=== PATIENT | female | born 1970 | race Caucasian/White ===

== ENCOUNTER → 2019-02-08 10:43 | Outpatient (CLI) | payer MEDICARE, MEDICAID, SELFPAY ==
--- NOTE | 2019-02-08 10:49 | VDUE_ITS ---
Reason For Study: ESRD Right Arm Left Arm Right Cephalic Vein at the wrist measures Left Cephalic Vein at the wrist measures 0.13 x 0.13 cm. 0.18 x 0.19 cm. Right Cephalic Vein in the forearm measures Left Cephalic Vein in the forearm measures 0.17 x 0.20 cm. 0.28 x 0.31 cm. Right Cephalic Vein below antecub measures Left Cephalic Vein below antecub measures 0.09 x 0.12 cm. 0.30 x 0.28 cm. Right Cephalic Vein above antecub measures Left Cephalic Vein above antecub measures 0.15 x 0.15 cm. 0.33x x0.37 cm. Right Cephalic Vein mid bicep measures 0.19 Left Cephalic Vein at mid bicep measures x 0.20 cm. 0.29 x 0.30 cm. Right Cephalic Vein at the shoulder measures Left Cephalic Vein at the shoulder measures 0.35 x 0.40 cm. 0.34 x 0.35 cm. Right Basilic Vein at the origin measures Basilic vein at origin measures 0.29 x 0.34 0.43 x 0.47 cm. cm. Right Basilic Vein mid bicep measures 0.39 x Basilic vein at bicep measures 0.27 x 0.29 0.47 cm. cm. Right Basilic Vein above antecub measures Basilic vein above antecub measures 0.29 x 0.47 x 0.49 cm. 0.30 cm. Rt Brachial artery measures 0.47 x 0.48 cm Lt Brachial artery measures 0.42 x 0.41 cm with a velocity of 115.4 cm/sec. with a velocity of 108.9 cm/sec. Rt Radial artery measures 0.23 x 0.23 cm Lt Radial artery measures 0.10 x 0.11 cm with a velocity of 108.9 cm/sec. with a velocity of 49.4 cm/sec. Interpretation Summary Diminutive right upper extremity cephalic vein Small left cephalic vein at the wrist but otherwise adequate Adequate and compressible bilateral upper arm basilic veins Abnormal bilateral radial arteries--very small on the left Normal bilateral brachial arteries. Ordering Physician: Mark Becerra Referring Physician: Natalee Bhakta Performed By: Carolyn Danielson RVT ?
== END ==
PROVIDERS: Family Provider Family Medicine; PCP Family Medicine; Referring Provider Internal Medicine Nephrology; Visit Provider Internal Medicine Nephrology
DX: Z01.818 Encounter for other preprocedural examination (principal); N18.6 End stage renal disease
CPT/HCPCS: 93970; 93971; G0365

== ENCOUNTER → 2019-02-15 08:49 | Outpatient (CLI) | payer MEDICARE, MEDICAID, SELFPAY ==
[2019-02-15 08:15] VITALS: BMI 18.1
--- NOTE | 2019-02-15 08:51 | RAD_ITS ---
STUDY: X-RAY CHEST REASON FOR EXAM: Female, 48 years old. Pre-op. TECHNIQUE: PA and lateral views of the chest. COMPARISON: None. FINDINGS: The lungs are hyperinflated. There is no focal consolidation. There is a central venous catheter in place terminating within the expected region of the superior vena cava. There is blunting of the left costophrenic angle. Normal size heart. Normal mediastinum and chika. Normal visualized pulmonary arteries. Normal visualized aortic arch and descending thoracic aorta. There are diffuse degenerative changes of the visualized thoracic spine. Normal visualized ribs, clavicles, and shoulders. There is no demonstrated abnormality of the visualized soft tissue structures of the upper abdomen. RAD/Chest PA and Lateral IMPRESSION: Hyperinflated lungs may reflect underlying COPD. Mild blunting of the left costophrenic angle, this may be secondary to pleural thickening and/or a small effusion. Electronically Signed: Jyoti Low MD at 16:49 EDT Tel , Service support ,
== END ==
PROVIDERS: Family Provider Family Medicine; PCP Family Medicine; Referring Provider Surgery; Visit Provider Surgery
DX: R05 Cough (principal)
CPT/HCPCS: 71046

== ENCOUNTER 2019-03-15 10:09 | Day surgery (SDC) | payer MEDICARE, MEDICAID, SELFPAY ==
[2019-02-15 08:15] VITALS: BMI 18.1
--- NOTE | 2019-02-15 10:05 | HP_ITS ---
Intake Vital Signs 02/15/19 Height 5 ft 10 in 02/15/19 Weight: 126 lb 02/15/19 Body Mass Index (BMI) 18.1 02/15/19 Blood Pressure 177/9 H 02/15/19 Blood Pressure Location Rt brachial 02/15/19 Blood Pressure Position Sitting 02/15/19 Respiratory Rate 18 02/15/19 Pulse Rate 73 02/15/19 Pulse Source Monitor 02/15/19 Temperature 98.4 F 02/15/19 Temperature Source Oral 02/15/19 Pulse Ox 99 02/15/19 Oxygen Delivery Method room air Intake Visit Reasons: RENAL FAILURE/FISTULA, MAPPING DONE/[facility] 02/08/19 Communications Officer Required: No Is patient in pain?: No Allergies acetaminophen [From Vicodin] Allergy (Intermediate, Verified 02/15/19 08:16) itching hydrocodone [From Vicodin] Allergy (Intermediate, Verified 02/15/19 08:16) itching Medications calcium acetate 667 mg capsule 1,334 mg PO TID cap 02/15/19 [History Confirmed 02/15/19] carvedilol 25 mg tablet 25 mg PO BID tab 02/15/19 [History Confirmed 02/15/19] furosemide 80 mg tablet 80 mg PO BID tab 02/15/19 [History Confirmed 02/15/19] hydralazine 10 mg tablet 10 mg PO TID 02/15/19 [History Confirmed 02/15/19] nifedipine ER 60 mg tablet,extended release 60 mg PO BID tab 02/15/19 [History Confirmed 02/15/19] sodium bicarbonate 650 mg tablet 650 mg PO 4-6XD PRN 02/15/19 [History Confirmed 02/15/19] [facility] Medical History Chronic renal failure, stage 5 (Chronic) Chronic renal failure (Chronic) Hypertension (Chronic) Surgical History history peritoneal dialysis catheter (Acute) history right chest dialysis catheter (Acute) history right kidney transplant (Acute) Social History Smoking Status: Former smoker alcohol intake: never substance use type: does not use HPI HPI HPI: PARKER STAFFORD, is a 48 F who presents to the office today for HPI HPI Surgical H&P: Yes HPI: PARKER STAFFORD, is a 48 F who presents to the office today for surgical consultation regarding arteriovenous hemodialysis fistula creation. The patient is kindly referred by Dr. Mark Becerra and a written copy of my surgical consult recommendations will return to him. 48-year-old female. She got a living related renal transplant 2010 from her sister. The patient states that the cause of her renal demise in her estimation still indeterminate per possibly secondary to hypertension. 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 She states October 2018 she had right internal jugular tunneled dialysis catheters placed and she is been on hemodialysis ever since. She notes that previously she has had right internal jugular tunneled dialysis catheters in 2010. She also previously has had an attempt at peritoneal dialysis catheters and those did not function. She is right arm dominant. At the [facility] on February 08, 2019 she had bilateral upper extremity vein mapping. The right upper extremity cephalic vein throughout the forearm and upper arm very diminutive. The right upper arm basilic vein was adequate. The left forearm cephalic vein immediately wrist very small however by the mid forearm and then more approximately adequate. The left upper arm basilic vein was adequate. Bilateral radial arteries at the wrist somewhat small. ROS General General: Yes fatigue; no weight change, appetite, colon cancer, breast cancer or weakness HEENT HEENT: No difficulty swallowing, eye injury, eye surgery, swollen glands or hoarseness Endo Endocrine: No thyroid disease, diabetes mellitus, thyroid cancer, Hair loss, heat intolerance or cold intolerance Skin Skin: No rash or changing moles Breast Breast: No left breast lump, right breast lump, nipple discharge, breast pain, abnormal mammogram, abnormal US or breast enlargement Musc Musculoskeletal: No back problems, arthritis, rheumatoid arthritis, gout or joint pain Cardio Cardiovascular: Yes heart disease and high blood pressure; no murmur, pacemaker, atrial fibrillation, heart attack, heart stent, palpitations, shortness of breat with exertion or chest pain Psych Psychiatric: No depression, anxiety or hearing voices Resp Respiratory: No shortness of breath, No sleep apnea, No cough, No COPD, No asthma, No emphysema, No wheezing Gastro Gastrointestinal: No abdominal pain, No nausea or vomiting, No diarrhea, No constipation, No blood in stool, No acid reflux, No hemorrhoids, No ulcers, No gallbladder problem, No black,tarry stools Steve Hematologic: No blood thinners, No blood disorders, No bleeding, No anemia, No blood clots Neuro Neurologic: No system reviewed and no additional complaints, except as docu, No as per HPI, No abnormal walking, No abnormal hearing, No abnormal movements, No abnormal speech, No behavioral changes, No burning sensations, No confusion, No seizure-like activity, No unsteadiness, No dizziness, No localized weakness, No frequent falls, No headache(s), No lack of coordination, No loss of vision, No memory loss, No numbness, No other visual disturbances, No radiating pain, No restless legs, No sensory deficit, No fainting, No tingling, No tremor(s), No weakness, No other Exam Const General: cooperative Nutritional Appearance: underweight Orientation: alert, awake, oriented x3 HENMT Head: normal to inspection Chest Chest palpation & inspection: normal inspection of the chest Breast Palpation: No nipple discharge Other: Right internal jugular tunneled dialysis catheters in place Resp Effort & Inspection: normal respiratory effort Auscultation: bronchial breath sounds on the left Cardio Rate: regular rate Rhythm: regular rhythm Heart Sounds: no murmurs GI Palpation: soft, no hepatosplenomegaly Musc Cervical Spine: normal cervical lordosis Skin Other: Bilateral upper extremity skin texture and turgor normal Neuro Cognition: normal cognition Extrem General: no calf tenderness bilaterally Other: Left upper extremity thin. 2-3+ left radial pulse. 3+ left brachial pulse. On my ultrasound inspection the cephalic vein immediately at the wrist is diminutive. Approximately 6 cm more proximally on the left forearm there is a branch point of the cephalic vein where it becomes larger. The additional 2 cm more proximal to that there is an additional branch point where it becomes even larger. It is patent and compressible throughout Psych Affect: normal affect Assessment & Plan Problems 1. Chronic renal failure, stage 5 N18.5 Plan 48-year-old female. On dialysis at least since 2010. Renal transplant 2010 living related. Recent transplant rejection/failure. She is currently being dialyzed via right chest catheters. She is right arm dominant. I proposed for her a left forearm radial to cephalic arteriovenous hemodialysis fistula. On inspection the cephalic vein is rather diminutive immediately at the wrist. I will need to inspect with ultrasound and plan this fistula slightly more proximally in the left forearm which may require degree of transposition of the cephalic vein. Her radial artery at the wrist is borderline but on clinical palpation it appears adequate. Her right upper extremity cephalic vein is diminutive throughout. I believe that an attempt at a forearm cephalic vein fistula on the left would be pertinent as the patient therefore long-term what has a limited set of location sites for potential fistulas. It is of note that her left upper arm cephalic vein and bilateral upper arm basilic veins would appear to be appropriate. I have discussed with her the technique, benefit, risks, alternatives. No guarantees of success have been offered. The patient is aware that additional interventions may be required to help maintain or mature fistula flow. I appreciate the opportunity of assisting with her surgical care It is of additional note that today I demonstrated some bronchial breath sounds on the left. Patient feels like she has had some nonproductive cough and sneezing. I will obtain a chest x-ray on her today and request a copy to her primary care physician with a request that she follow-up with her. Finally the patient is aware that I will be out of town for period of time. We will try to schedule her as soon as possible upon my return. CC:Dr Mark Becerra and Dr Natalee Painting M.D., F.A.C.S. Orders Orders: Chest PA and Lateral Today R05 Coding Level of Care Code Comprehensive,moderate Diagnoses Chronic renal failure, stage 5 N18.5 02/15/19 1005 <Electronically signed by Cezar blanc MD> Date _ Cezar Painting MD I have re-examined the patient. There are no clinical changes since date of exam.
[2019-03-15] VITALS (7 sets, daily range): BP systolic 138–186; BP diastolic 90–107; PULSE 64–68; RESP 16; TEMP 36.6–36.8; O2SAT 95–100; BMI 18.6
--- NOTE | 2019-03-15 10:23 | EKG12_ITS ---
Test Reason : PREOP Blood Pressure : / mmHG Vent. Rate : 068 BPM Atrial Rate : 068 BPM P-R Int : 148 ms QRS Dur : 086 ms QT Int : 442 ms P-R-T Axes : 052 064 073 degrees QTc Int : 469 ms Normal sinus rhythm Left ventricular hypertrophy Abnormal ECG Confirmed by SENIA MONACO, CALE ([id number]), deputy editor in chief LUPE RM ([id number]) on 03/23/2019 8:51:39 AM Referred By: Cezar Painting Confirmed By:CALE CONN MD
[2019-03-15 10:41] LABS: Hematocrit 33.8 % (37-47); Mean Corp Hgb Conc 32.5 g/gl (32-36); Mean Corpuscular Hgb 29.3 pg (27.0-32.0); Mean Corpuscular Volume 90.1 fL (81-99); Mean Platelet Vol. 9.2 fl (6.2-12.0); Platelet Count 230 K/mm3 (150-450); RBC Distribution Width CV 13.3 % (11.6-14.6); RBC Distribution Width SD 42.7 fl (35.1-43.9); Red Blood Count 3.75 M/mm3 (4.2-5.4); White Blood Count 6.8 K/mm3 (4.4-11.0)
[2019-03-15 10:43] LABS: Scan Indicated on CBC? Y/N NO
[2019-03-15 10:45] LABS: Internal QC Validated? YES +Cl - CLEAR BKGD; Pregnancy, Urine Negative Negative
[2019-03-15 10:54] LABS: Anion Gap 7 (5-15); BUN 31 mg/dL (7-18); BUN/Creat Ratio 5.1 RATIO (10-20); Calcium,Total 9.6 mg/dL (8.5-10.1); Chloride 95 mmol/L (98-107); Creatinine, Serum 6.05 mg/dL (0.55-1.02); EST Glomerular Filtration Rate 8 mL/min (>60); Est Glom Filt Rate - Afr Amer 10 mL/min (>60); Glucose 90 mg/dL (74-106); Potassium 4.6 mmol/L (3.5-5.1); Sodium Level 132 mmol/L (136-145)
--- NOTE | 2019-03-15 13:06 | DCINST_ITS ---
Discharge Diet: Renal Diet Discharge Activity: May Not Drive - for 2-3 days or while taking narcotic pain medications., May Take a Tub Bath - in 5 days. Lifting Restrictions: 5 pounds Keep extremity elevated above heart level: - - Keep arm elevated above the heart level for 3 days. Additional Activity Instructions:: Exercise hand vigorously with a stress ball. Call your doctor if your incision/area has: Continuous Slow Oozing, Sudden Increased Bleeding - apply pressure and call your doctor., Increased Pain/ Swelling, Increased Redness, Foul Smelling Discharge Call your doctor if you observe: Fever of 101 or Higher Suture Line Care: Avoid Pulling/Pushing, Avoid Pinching/Bending Cleanse incision/area with: Keep Dressing Clean & Dry Additional Dressing/Incision Instructions:: Change or remove dressing in 1-2 days. May protect with a gauze bandaid. Additional Instructions: Start a low does 81mg aspirin daily please Allergies/Adverse Reactions: Allergies hydrocodone [From Vicodin] Allergy (Intermediate, Verified 02/15/19 08:16) itching chloraprep Allergy (Uncoded 03/08/19 14:07) Rash Medications to take at Discharge calcium acetate 667 mg capsule 1,334 mg PO TID cap 02/15/19 carvedilol 25 mg tablet 25 mg PO BID tab 02/15/19 furosemide 80 mg tablet 80 mg PO BID tab 02/15/19 hydralazine 10 mg tablet 10 mg PO TID 02/15/19 nifedipine ER 60 mg tablet,extended release 60 mg PO BID tab 02/15/19 sodium bicarbonate 650 mg tablet 650 mg PO 4-6XD PRN 02/15/19 Primary Care Physician: Natalee Bhakta MD [Primary Care Provider] - Test Results: Test results from this visit will be discussed in further detail at your follow- up appointment, if applicable. Please Follow Up With: Cezar Painting MD - [phone] When: Call to make an appointment for suture removal and follow up in 10 days
[2019-03-15] MEDS: Heparin Injection (Vial) 5,000 UNIT/ML VIAL 5000 UNIT (13:30)
[2019-03-15] MEDS: Bupivacaine Mpf 0.5% 30 ML VIAL (14:10)
--- NOTE | 2019-03-15 14:29 | OP.PCM_ITS ---
Problem List (1) Chronic renal failure, stage 5 Status: Chronic Report of Operation Date of Procedure: 03/15/19 Pre-Operative Diagnosis: Stage V chronic renal failure in need of arteriovenous fistula access Post-Operative Diagnosis: Same Surgery/Procedure Performed:: Mid left forearm radiocephalic arteriovenous hemodialysis fistula creation Description of Surgical Findings:: Timeout and informed consent was obtained. 48-year-old female was taken the operating room she was placed supine on the table. The left upper extremity was sterilely prepped and draped. 1% lidocaine mixed 50-50 with 0.5% Marcaine was used as local anesthetic. A total of 10 cc was used. Ultrasound had been performed mapping out the left forearm cephalic vein. At the level of the wrist was quite diminutive. One third of the way more proximally there was a branch point. At that point and secured the local made an oblique incision sharp and blunt dissection was used to harvest the cephalic vein and I actually dissected free more proximally. Sidebranch was secured hemoclips. Sharp and blunt dissection was used to identify the radial artery which admittedly was quite diminutive. Circumferential control was obtained. The patient received 5000 units of heparin. The vein was ligated distally and then spatulated. Peripheral vascular flaps were placed on the radial artery at 11 blade was used to make an arteriotomy which was extended with Cummings scissors. This was a rather small arterial inflow. A end-to-side anastomosis created with a running 7-0 Prolene. There was nicely hemostatic anastomosis. There appeared to be good initial flow. Doppler suggested good triphasic flow through the fistula. There was a palpable thrill. Hemostasis was intact. The subcutaneous tissues approximate interrupted 3-0 Vicryl. Skin edges approximate the running septic or 4-0 Monocryl. Steri- Strips Telfa and tape dressings applied. Sponge and instrument and needle counts were reported to surgically correct. The hand was viable appeared to be pink with adequate capillary refill. Specimens none. Drains none. Blood loss minimal. The patient was taken to the recovery room in satisfactory condition. Cezar Painting M.D., F.A.C.S. Type of Anesthesia:: Local MAC Anesthesiologist: Nancie Parsons
== END 2019-03-15 15:49 | disposition home or self-care (01) ==
LOC: SDC 10:11 → AC 10:11
PROVIDERS: Anesthesiology; Family Provider Family Medicine; PCP Family Medicine; Referring Provider Surgery; Visit Provider Surgery
PROC: (CPT 36821; principal; 2019-03-15 12:45)
DX: Z45.2 Encounter for adjustment and management of vascular access device (principal); I13.2 Hypertensive heart and chronic kidney disease with heart failure and with stage 5 chronic kidney disease, or end stage renal disease; N18.5 Chronic kidney disease, stage 5; I50.9 Heart failure, unspecified; E06.3 Autoimmune thyroiditis; R63.6 Underweight; Z68.1 Body mass index [BMI] 19.9 or less, adult; Z99.2 Dependence on renal dialysis; Z94.0 Kidney transplant status; Z87.891 Personal history of nicotine dependence; Z79.899 Other long term (current) drug therapy
CPT/HCPCS: 01844; 36821; 36415; 80048; 81025; 85027; 93005

== ENCOUNTER 2019-09-13 19:25 | Emergency (ER) | payer MEDICARE, SELFPAY ==
[2019-04-26 07:49] VITALS: BMI 18.6
[2019-09-13 19:28] VITALS: BP 188/111; PULSE 73; RESP 18; TEMP 36.8; O2SAT 98; BMI 19.8
--- NOTE | 2019-09-13 20:15 | CT_ITS ---
STUDY: CT CERVICAL SPINE WITHOUT CONTRAST REASON FOR EXAM: Female, 48 years old. Nontraumatic neck pain. RADIATION DOSAGE (If Supplied By Facility): CTDIvol = ( 14.28 ) mGy, DLP = ( 266.48 ) mGycm TECHNIQUE: High resolution transaxial imaging was performed without contrast material. Sagittal and coronal images were reconstructed. Individualized dose optimization techniques were used for this CT. COMPARISON: None FINDINGS: Normal craniovertebral junction. There are degenerative changes of the anterior atlantoaxial articulation. Normal odontoid process. Normal cervical lordosis. Normal vertebral bodies and posterior osseous elements. C2-3: Normal endplates. Normal disc height and morphology. Normal central canal and intervertebral neuroforamina. C3-4: Minimal endplate spondylosis.. Normal disc height and morphology. Normal central canal and intervertebral neuroforamina. C4-5: Mild endplate spondylosis. Slight loss of disc height. There is marked degenerative changes of the right facet joint. Normal central canal and intervertebral neuroforamina. C5-6: Normal endplates. Loss of disc height. Minimal facet joint degenerative change. Normal central canal and intervertebral neuroforamina. C6-7: Normal endplates. Normal disc height and morphology. Normal central canal and intervertebral neuroforamina. C7-T1: Normal endplates. Normal disc height and morphology. Normal central canal and intervertebral neuroforamina. There is low attenuation and calcifications in both thyroid lobes. CT/Spine Cervical without Contras IMPRESSION: Minimal degenerative changes of the cervical spine. If there is continued concern for disc disease or neural foraminal narrowing, MRI is recommended.. Electronically Signed: Angel Munoz DO at 21:21 EST Tel [phone], Service support ,
--- NOTE | 2019-09-13 20:16 | ED.DCSUM_ITS ---
History of Present Illness Chief Complaint: Other, Pain/Inj Detail of Chief Complaint: neck pain Informant: Patient Onset: Today Context: - - Awoke with the symptoms, prior to getting out of bed Timing: Continuous Quality: Pain Location: Diffuse posterior neck, worst in the paraspinal regions in the upper cervic Current Severity: Severe Maximum Severity: Severe Worsened by: Any slight movement Relieved by: Nothing Associated Symptoms: No neurologic symptoms, headache, vision changes Narrative: Patient had chronic renal failure from hypertension, she is on dialysis and also has a renal transplant. She awoke this morning with severe neck pain has been progressively worsening throughout the day. It is nonlateralizing. She denies any neurologic symptoms. She denies any injury, heavy lifting, or any movements that she can think of that could be related to this. Swallowing makes it worse but she has no trouble swallowing or odynophagia per se. Prior similar symptoms: No Recent Illness/Hospitalization: No - Past Medical History (1) Chronic renal failure, stage 5 Status: Chronic (2) Hypertension Status: Chronic Past Medical History - Allergies and Home Meds Allergies/Adverse Reactions: Allergies hydrocodone [From Vicodin] Allergy (Intermediate, Verified 09/13/19 19:29) itching chloraprep Allergy (Uncoded 09/13/19 19:29) Rash Primary Care Physician: Natalee Bhakta MD [Primary Care Provider] - Surgical History: - - Renal transplant Smoking Status: Former smoker Drugs: None Review of Systems General: Denies: Chills, Fever, Sweats Eyes: Denies: Visual changes - bilaterally, Diplopia ENT: Denies: Rhinorrhea, Sore throat Cardiovascular: Denies: Chest pain, Palpitations Respiratory: Denies: Dyspnea, Cough, Dyspnea on exertion Gastrointestinal: Denies: Abdominal pain, Nausea, Vomiting, Diarrhea, Melena, Hematochezia Genitourinary: Denies: Dysuria, Hematuria, Frequency Musculoskeletal: Reports: Neck pain. Denies: Back pain, Extremity Pain Skin: Denies: Rash, Wounds Neurological: Denies: Headache, Weakness, Parasthesia, Numbness Physical Exam Vital Signs/Narrative: Vital Signs Temp Pulse Resp BP Pulse Ox 09/13/19 19:28 98.3 F 73 18 188/111 H 98 Inital Vital Signs reviewed: Yes General: Well nourished, Well developed, Acute Distress Head: Normocephalic, Atraumatic Eyes: Perrl, EOMI ENT: Moist mucous membranes, No rhinorrhea Neck: No lymphadenopathy, No JVD, - - Patient very resistant to move her neck due to pain. She is able to sit up forward without moving her head. She is mildly tender in both paraspinal upper cervical spine musculature, there is no midline tenderness, no rash, no step-off. Cardiovascular: Regular rate, Regular rhythm, No murmurs Respiratory: No distress, CTA bilaterally, Chest nontender Abdomen: Soft, Nontender, Nondistended, Normal bowel sounds Back: Nontender, Normal Inspection Extremities: Nontender, No edema Skin: Normal color, No rash, No Trauma Neurological: Alert, Oriented x3, Cranial nerves II-XII grossly intact, Normal Strength, Normal Sensation, Normal DTR Psychological: Tearful Diagnostic/Tx/Re-eval Impressions Cervical Spine CT 09/13/19 20:15 IMPRESSION: Minimal degenerative changes of the cervical spine. If there is continued concern for disc disease or neural foraminal narrowing, MRI is recommended.. Electronically Signed: Angel Munoz DO at 21:21 EST Tel [phone], Service support , 09/13/19 20:15 CT Cervical [Spine Cervical without Contras] [CT] Stat Laboratory Results 09/13/19 09/13/19 20:45 20:45 WBC 7.3 RBC 3.80 L Hgb 11.3 L Hct 34.8 L MCV 91.6 MCH 29.7 MCHC 32.5 RDW Std Deviation 45.3 H RDW Coeff of Amanda 13.4 Plt Count 234 MPV 9.8 Immature Gran % (Auto) 0.300 Neut % (Auto) 75.9 H Lymph % (Auto) 11.1 L [place] % (Auto) 10.4 H Eos % (Auto) 1.9 Baso % (Auto) 0.4 Absolute Neuts (auto) 5.6 Absolute Lymphs (auto) 0.81 L Nucleated RBC % 0 Sodium 138 Potassium 4.0 Chloride 100 Carbon Dioxide 25.0 Anion Gap 13 BUN 33 H Creatinine 7.32 H Estim Creat Clear Calc 9.49 Est GFR (MDRD) Af Amer 8 L Est GFR (MDRD) Non-Af 6 L BUN/Creatinine Ratio 4.5 L Glucose 83 Calcium 9.8 - Medical Decision Making Given the severity of the patient's pain, I obtained a CT of the cervical spine, it showed no acute abnormalities. Her labs are unremarkable except for chronic renal failure. She has a failed transplant and currently gets dialysis. Given the nature of the pain and exam, I do not think she is having a cervical arterial dissection or other vascular phenomenon. She has no neurologic symptoms. After analgesics she feels much better and is comfortable going home. We will give her a prescription for some analgesics and advised that she follow-up. I suspect this is musculoskeletal in etiology. ED Disposition - Plan for ED Patient: Disposition: Home or Assisted Living Diagnosis: Torticollis, acute Instructions: Torticollis (Wry Neck) Prescriptions: cycloBENZAPRine HCl [Flexeril] 10 mg PO TID PRN #20 tab PRN Reason: Muscle Spasm Prescription Printed Oxycodone HCl/Acetaminophen [Percocet 5/325] 1 tab PO Q6H PRN PRN 3 Days #12 tab PRN Reason: Pain Prescription Printed Referrals: Natalee Bhakta MD [Primary Care Provider] - 3-5 Days if not improving
[2019-09-13] MEDS: HYDROmorphone 1 MG/ML Syringe 2 MG IV (20:34)
[2019-09-13] MEDS: Ondansetron 4 MG/2 ML Vial IV (20:34)
[2019-09-13] MEDS: Orphenadrine 60 MG/2 ML Ampul IM (20:34)
[2019-09-13 20:49] LABS: Absolute Lymphocyte Count 0.81 X10^3/uL (0.83-4.51); Absolute Neutrophil Count 5.6 X10^3/uL (2.0-7.7); Basophil# 0.03 X10^3/uL; Basophil% 0.4 % (0-1); Eosinophil# 0.14 X10^3/uL; Eosinophils% 1.9 % (0-5); Hematocrit 34.8 % (37-47); Hemoglobin 11.3 g/dL (12.0-15.0); Lymphocyte # 0.81 X10^3/ul (4.0); Lymphocyte % 11.1 % (19-41); Mean Corp Hgb Conc 32.5 g/dL (32-36); Mean Corpuscular Hgb 29.7 pg (27.0-32.0); Mean Corpuscular Volume 91.6 fL (81-99); Mean Platelet Vol. 9.8 fl (6.2-12.0); Monocyte# 0.76 X10^3/uL; Monocyte% 10.4 % (0-10); NRBC Flagged by Analyzer 0 % (0-5); Neutrophil # 5.57 X10^3/uL (2.7-7.7); Neutrophil % 75.9 % (47-70); Platelet Count 234 K/mm3 (150-450); RBC Distribution Width CV 13.4 % (11.6-14.6); RBC Distribution Width SD 45.3 fl (35.1-43.9); White Blood Count 7.3 K/mm3 (4.4-11.0)
[2019-09-13 21:21] LABS: Anion Gap 13 (5-15); BUN 33 mg/dL (7-18); BUN/Creat Ratio 4.5 RATIO (10-20); Calcium,Total 9.8 mg/dL (8.5-10.1); Chloride 100 mmol/L (98-107); Creatinine, Serum 7.32 mg/dL (0.55-1.02); EST Glomerular Filtration Rate 6 mL/min (>60); Est Glom Filt Rate - Afr Amer 8 mL/min (>60); Estimated Creatinine Clearance 9.49 ml/min; Glucose 83 mg/dL (74-106); Sodium Level 138 mmol/L (136-145)
[2019-09-13 23:48] VITALS: BP 188/116; PULSE 69; PULSE 70; RESP 16; O2SAT 100; O2SAT 99
== END 2019-09-13 23:52 | disposition home or self-care (01) ==
PROVIDERS: Emergency Provider Emergency Medicine; Family Provider Family Medicine; PCP Family Medicine
DX: M43.6 Torticollis (principal); I12.0 Hypertensive chronic kidney disease with stage 5 chronic kidney disease or end stage renal disease; N18.5 Chronic kidney disease, stage 5; Z99.2 Dependence on renal dialysis; Z94.0 Kidney transplant status; Z79.82 Long term (current) use of aspirin; Z79.899 Other long term (current) drug therapy; Z87.891 Personal history of nicotine dependence
CPT/HCPCS: 72125; 80048; 85025; 96372; 96374; 96375; 99283; A4216; J2405